=== PATIENT | female | born 1990 | race Caucasian/White ===

== ENCOUNTER 2018-06-25 15:58 | Emergency (ER) | payer OTHER ==
[~2018-06-25] VITALS: Ht 165.1 cm; Wt 79.8 kg
[2018-06-25] MEDS ORDERED: MOBIC15 MG PO (19:27)
[2018-06-25 19:33] VITALS: BP 120/81
== END 2018-06-25 19:44 | disposition home or self-care (01) ==
LOC: ER 15:58
DX: M25.572 Pain in left ankle and joints of left foot (principal)

== ENCOUNTER 2018-09-08 10:58 | Emergency (ER) | payer OTHER ==
[~2018-09-08] VITALS: Ht 165.1 cm; Wt 84.4 kg
[~2018-09-08 10:58] MED LIST: MOBIC15 MG PO
[2018-09-08 10:59] VITALS: BP 118/73
[2018-09-08] MEDS ORDERED: KEPPRA1000 MG PO (11:19)
[2018-09-08] MEDS ORDERED: TOPAMAX50 MG PO (11:19)
[2018-09-08 12:21] LABS: URINE BILIRUBIN NEGATIVE (Negative); URINE BLOOD NEGATIVE (Negative); URINE CLARITY CLEAR; URINE COLOR YELLOW; URINE GLUCOSE-RANDOM* NEGATIVE (Negative); URINE KETONES NEGATIVE (Negative); URINE NITRITE-REFLEX NEGATIVE (Negative); URINE PROTEIN (DIPSTICK) NEGATIVE (Negative); URINE SPECIFIC GRAVITY 1.025 (1.005-1.035)
[2018-09-08 12:25] LABS: URINE LEUKOCYTES-REFLEX 1+ (Negative)
[2018-09-08 12:37] LABS: CASTS None Seen /LPF (None Seen); MUCUS >6 Heavy strn/LPF (None Seen); SQUAMOUS >10 Many /LPF (0-3)
[2018-09-08 12:38] LABS: BACTERIA-REFLEX 1-9 Few /HPF (None Seen); CRYSTALS None Seen /LPF (None Seen); URINE RBC None Seen /HPF (0-2); URINE WBC-REFLEX 6-15 Few /HPF (0-5)
== END 2018-09-08 12:21 | disposition home or self-care (01) ==
LOC: ER 10:58
PROVIDERS: Emergency Medicine
DX: H53.9 Unspecified visual disturbance (principal); G40.909 Epilepsy, unspecified, not intractable, without status epilepticus

== ENCOUNTER 2019-04-03 11:05 | Emergency (ER) | payer OTHER ==
[~2019-04-03] VITALS: Ht 165.1 cm; Wt 90.7 kg
[~2019-04-03 11:05] MED LIST changes: +KEPPRA1000 MG PO; +TOPAMAX50 MG PO
[2019-04-03] MEDS ORDERED: ZYRTEC10 MG PO (11:17)
[2019-04-03] MEDS ORDERED: NEURONTIN 300300 M1 PO (11:17)
[2019-04-03 11:34] LABS: ABSOLUTE NEUTROPHILS 4.1 thou/uL (1.4-8.2); BASOPHILS 0.9 % (0.0-2.0); EOSINOPHILS 2.8 % (0.0-3.0); HEMATOCRIT 38.8 % (37.0-47.0); HEMOGLOBIN 13.2 gm/dL (12.0-15.0); LYMPHOCYTES 31.3 % (24.0-44.0); MCH 28.5 pg (26.0-34.0); MCHC 33.9 g/dL (28.0-37.0); MCV 83.9 fL (80.0-100.0); MONOCYTES 6.8 % (1.0-8.0); PLATELET COUNT 246 thou/uL (150-400); POLYS 58.2 % (36.0-66.0); RBC 4.62 mil/uL (4.20-5.00); RDW 13.5 % (10.5-14.5); WBC 7.1 thou/uL (4.0-11.0)
[2019-04-03 11:39] LABS: CALCIUM 9.2 mg/dL (8.5-10.1); POTASSIUM 3.7 mmol/L (3.5-5.1)
[2019-04-03 11:45] LABS: ALBUMIN 4.1 g/dL (3.4-5.0); TOTAL BILIRUBIN 0.4 mg/dL (<0.1-1.0); TOTAL PROTEIN 7.8 g/dL (6.4-8.2)
[2019-04-03 12:20] LABS: URINE BILIRUBIN NEGATIVE (Negative); URINE BLOOD NEGATIVE (Negative); URINE CLARITY CLEAR; URINE COLOR YELLOW; URINE GLUCOSE-RANDOM* NEGATIVE (Negative); URINE KETONES NEGATIVE (Negative); URINE LEUKOCYTES-REFLEX TRACE (Negative); URINE NITRITE-REFLEX NEGATIVE (Negative); URINE PROTEIN (DIPSTICK) NEGATIVE (Negative); URINE UROBILINOGEN 0.2 E.U./dl (0.2-1.0)
[2019-04-03 12:28] LABS: AMP/METHAMP Negative (Negative); BARBITURATES Negative (Negative); BENZODIAZEPINES Negative (Negative); COCAINE Negative (Negative); METHADONE Negative (Negative); OPIATES Negative (Negative); PCP Negative (Negative)
[2019-04-03] MEDS ORDERED: CLORAZEPATE D3.75 M1 PO (13:06)
[2019-04-03 13:21] VITALS: BP 100/63
--- NOTE | 2019-04-04 07:46 | EKG ---
[facility] [place] [address] ELECTROCARDIOGRAM REPORT Name: MISHEL MCCALL Room #: DEP RADHA Fuentes#: [id number] ������������������ Admission: 04/03/19 ������������������ Attend Phys: Discharge: 04/03/19 ������������������ Date of : 89 Report #: [id number] ����������������������������������������������������������������� [id number] THIS REPORT FOR: //name// [facility] ED Test Date: 2019-04-03 Test Time: 11:33:09 Pat Name: MISHEL MCCALL Department: Room: Gender: F [employer] Worker: ANGELO : 1990 Requested By: Amanda Ortiz Order Number: [id number] MD: Gerard Amado Measurements Intervals Trilla Rate: 66 P: 26 MS: 141 QRS: 15 QRSD: 86 T: -9 QT: 399 QTc: 418 Interpretive Statements Sinus rhythm Nonspecific ST and T wave abnormality No previous ECG available for comparison Electronically Signed On 04-04-2019 7:45:58 CDT by Gerard Amado [email or web address] ��������������������������������������������� <ELECTRONICALLY SIGNED> ���������������������������������������� By: Gerard Amado MD, [facility] ��������������������������������������������� 04/04/19 0745 [id number] 1133 Gerard Amado MD, FACC /EPI
== END 2019-04-03 13:22 | disposition home or self-care (01) ==
LOC: ER 11:05
PROVIDERS: Nurse Practitioner Family
DX: R56.9 Unspecified convulsions (principal)

== ENCOUNTER 2019-04-05 09:08 | Emergency (ER) | payer OTHER ==
[~2019-04-05] VITALS: Ht 165.1 cm; Wt 89.8 kg
[~2019-04-05 09:08] MED LIST changes: +CLORAZEPATE D3.75 M1 PO; +NEURONTIN 300300 M1 PO; +ZYRTEC10 MG PO
[2019-04-05] MEDS ORDERED: TRAZODONE HCL100 MG PO (09:13)
[2019-04-05] MEDS ORDERED: PRAZOSIN 1 MG CA1 M1 PO (09:14)
[2019-04-05] MEDS ORDERED: CELEXA20 MG PO (09:14)
[2019-04-05] MEDS ORDERED: NEURONTIN 300300 M1 PO (09:15)
[2019-04-05 10:33] LABS: ABSOLUTE NEUTROPHILS 4.3 thou/uL (1.4-8.2); BASOPHILS 1.1 % (0.0-2.0); EOSINOPHILS 2.4 % (0.0-3.0); HEMATOCRIT 38.4 % (37.0-47.0); HEMOGLOBIN 12.9 gm/dL (12.0-15.0); LYMPHOCYTES 26.9 % (24.0-44.0); MCH 28.2 pg (26.0-34.0); MCHC 33.6 g/dL (28.0-37.0); MCV 83.9 fL (80.0-100.0); MONOCYTES 6.7 % (1.0-8.0); PLATELET COUNT 223 thou/uL (150-400); POLYS 62.9 % (36.0-66.0); RBC 4.58 mil/uL (4.20-5.00); RDW 13.9 % (10.5-14.5); WBC 6.9 thou/uL (4.0-11.0)
[2019-04-05 10:38] LABS: CALCIUM 9.1 mg/dL (8.5-10.1); CREATININE 1.1 mg/dL (0.6-1.0); POTASSIUM 3.5 mmol/L (3.5-5.1)
[2019-04-05 10:40] LABS: URINE BLOOD 2+ (Negative); URINE COLOR YELLOW; URINE GLUCOSE-RANDOM* NEGATIVE (Negative); URINE KETONES NEGATIVE (Negative); URINE LEUKOCYTES-REFLEX NEGATIVE (Negative); URINE NITRITE-REFLEX NEGATIVE (Negative); URINE PROTEIN (DIPSTICK) TRACE (Negative); URINE SPECIFIC GRAVITY >= 1.030 (1.005-1.035); URINE UROBILINOGEN 0.2 E.U./dl (0.2-1.0)
[2019-04-05 10:43] LABS: URINE BILIRUBIN NEGATIVE (Negative); URINE CLARITY CLOUDY
[2019-04-05 10:44] LABS: ICTOTEST (BILI CONFIRMATORY) Negative (Negative)
[2019-04-05 10:44] LABS: ALBUMIN 3.9 g/dL (3.4-5.0); TOTAL BILIRUBIN 0.6 mg/dL (<0.1-1.0); TOTAL PROTEIN 7.5 g/dL (6.4-8.2)
[2019-04-05 10:54] LABS: CASTS None Seen /LPF (None Seen); SQUAMOUS 0-3 Few /LPF (0-3)
[2019-04-05 10:55] LABS: URINE RBC 0-2 Rare /HPF (0-2); URINE WBC-REFLEX 0-5 Rare /HPF (0-5)
[2019-04-05 10:56] LABS: AMORPHOUS URATES Moderate /LPF (None Seen); BACTERIA-REFLEX 1-9 Few /HPF (None Seen); CALCIUM OXALATE 0-3 Few /LPF (None Seen)
[2019-04-05 11:11] VITALS: BP 103/65
[2019-04-05] MEDS ORDERED: KEFLEX500 M1 PO (11:22)
== END 2019-04-05 11:30 | disposition home or self-care (01) ==
LOC: ER 09:08
PROVIDERS: Physician Assistant
DX: N39.0 Urinary tract infection, site not specified (principal); R53.81 Other malaise; R53.83 Other fatigue

== ENCOUNTER 2019-04-13 09:54 | Emergency (ER) | payer OTHER ==
[~2019-04-13] VITALS: Ht 165.1 cm; Wt 84.8 kg
[~2019-04-13 09:54] MED LIST changes: +CELEXA20 MG PO; +KEFLEX500 M1 PO; +PRAZOSIN 1 MG CA1 M1 PO; +TRAZODONE HCL100 MG PO
[2019-04-13 10:27] LABS: URINE BLOOD 3+ (Negative); URINE CLARITY HAZY; URINE COLOR YELLOW; URINE GLUCOSE-RANDOM* NEGATIVE (Negative); URINE KETONES NEGATIVE (Negative); URINE LEUKOCYTES-REFLEX 1+ (Negative); URINE NITRITE-REFLEX NEGATIVE (Negative); URINE PROTEIN (DIPSTICK) NEGATIVE (Negative); URINE SPECIFIC GRAVITY >= 1.030 (1.005-1.035)
[2019-04-13 10:30] LABS: ABSOLUTE NEUTROPHILS 4.7 thou/uL (1.4-8.2); BASOPHILS 0.9 % (0.0-2.0); EOSINOPHILS 1.4 % (0.0-3.0); HEMATOCRIT 37.9 % (37.0-47.0); LYMPHOCYTES 28.7 % (24.0-44.0); MCH 28.8 pg (26.0-34.0); MCHC 34.3 g/dL (28.0-37.0); MCV 83.8 fL (80.0-100.0); MONOCYTES 5.7 % (1.0-8.0); PLATELET COUNT 253 thou/uL (150-400); POLYS 63.3 % (36.0-66.0); RBC 4.53 mil/uL (4.20-5.00); RDW 13.8 % (10.5-14.5); WBC 7.4 thou/uL (4.0-11.0)
[2019-04-13 10:31] LABS: ICTOTEST (BILI CONFIRMATORY) Negative (Negative); URINE BILIRUBIN NEGATIVE (Negative)
[2019-04-13 10:44] LABS: CALCIUM 9.2 mg/dL (8.5-10.1); CREATININE 0.9 mg/dL (0.6-1.0); POTASSIUM 3.6 mmol/L (3.5-5.1)
[2019-04-13 10:50] LABS: ALBUMIN 3.9 g/dL (3.4-5.0); TOTAL BILIRUBIN 0.5 mg/dL (<0.1-1.0); TOTAL PROTEIN 7.3 g/dL (6.4-8.2)
[2019-04-13 10:56] LABS: CASTS None Seen /LPF (None Seen); MUCUS >6 Heavy strn/LPF (None Seen); SQUAMOUS >10 Many /LPF (0-3)
[2019-04-13 10:57] LABS: BACTERIA-REFLEX 1-9 Few /HPF (None Seen); CRYSTALS None Seen /LPF (None Seen); URINE RBC >20 Many /HPF (0-2); URINE WBC-REFLEX 6-15 Few /HPF (0-5)
[2019-04-13] MEDS ORDERED: CELEBREX 200 M200 M1 PO (11:10)
[2019-04-13 11:14] VITALS: BP 98/70
== END 2019-04-13 11:11 | disposition home or self-care (01) ==
LOC: ER 09:54
PROVIDERS: Physician Assistant
DX: R10.84 Generalized abdominal pain (principal); G40.909 Epilepsy, unspecified, not intractable, without status epilepticus; Z79.899 Other long term (current) drug therapy

== ENCOUNTER 2019-04-20 06:45 | Emergency (ER) | payer OTHER ==
[~2019-04-20] VITALS: Ht 165.1 cm; Wt 84.8 kg
[~2019-04-20 06:45] MED LIST changes: +CELEBREX 200 M200 M1 PO
[2019-04-20 06:55] VITALS: BP 115/83
== END 2019-04-20 09:00 | disposition home or self-care (01) ==
LOC: ER 06:45
DX: S93.402A Sprain of unspecified ligament of left ankle, initial encounter (principal); S80.12XA Contusion of left lower leg, initial encounter; W18.39XA Other fall on same level, initial encounter; Y92.89 Other specified places as the place of occurrence of the external cause; Y93.89 Activity, other specified; Y99.8 Other external cause status

== ENCOUNTER 2019-05-03 18:33 | Emergency (ER) | payer OTHER ==
[~2019-05-03] VITALS: Ht 165.1 cm; Wt 83.9 kg
[2019-05-03] MEDS ORDERED: CELEXA10 MG PO (18:43)
[2019-05-03 19:24] LABS: ABSOLUTE NEUTROPHILS 6.3 thou/uL (1.4-8.2); BASOPHILS 1.2 % (0.0-2.0); EOSINOPHILS 2.1 % (0.0-3.0); HEMATOCRIT 40.1 % (37.0-47.0); HEMOGLOBIN 13.5 gm/dL (12.0-15.0); LYMPHOCYTES 29.2 % (24.0-44.0); MCH 28.3 pg (26.0-34.0); MCHC 33.7 g/dL (28.0-37.0); MCV 84.1 fL (80.0-100.0); MONOCYTES 5.8 % (1.0-8.0); POLYS 61.7 % (36.0-66.0); RBC 4.78 mil/uL (4.20-5.00); RDW 13.8 % (10.5-14.5)
[2019-05-03 19:29] LABS: CALCIUM 9.5 mg/dL (8.5-10.1); CREATININE 0.8 mg/dL (0.6-1.0); POTASSIUM 3.7 mmol/L (3.5-5.1)
[2019-05-03 19:36] LABS: ALBUMIN 3.9 g/dL (3.4-5.0); TOTAL BILIRUBIN 0.5 mg/dL (<0.1-1.0); TOTAL PROTEIN 7.6 g/dL (6.4-8.2)
[2019-05-03 19:58] LABS: PLATELET ESTIMATE NORMAL
[2019-05-03] MEDS ORDERED: IBUPROFEN 600600 M1 PO (20:47)
[2019-05-03 21:23] VITALS: BP 136/88
== END 2019-05-03 21:24 | disposition home or self-care (01) ==
LOC: ER 18:33
PROVIDERS: Physician Assistant
DX: S00.93XA Contusion of unspecified part of head, initial encounter (principal); S40.011A Contusion of right shoulder, initial encounter; S60.511A Abrasion of right hand, initial encounter; G40.909 Epilepsy, unspecified, not intractable, without status epilepticus; W18.39XA Other fall on same level, initial encounter; Y93.89 Activity, other specified; Y92.89 Other specified places as the place of occurrence of the external cause; Y99.8 Other external cause status

== ENCOUNTER 2019-05-08 09:10 | Emergency (ER) | payer OTHER ==
[~2019-05-08] VITALS: Ht 165.1 cm; Wt 84.8 kg
[~2019-05-08 09:10] MED LIST changes: +CELEXA10 MG PO; +IBUPROFEN 600600 M1 PO
[2019-05-08 11:40] VITALS: BP 110/73
== END 2019-05-08 11:40 | disposition home or self-care (01) ==
LOC: ER 09:10
DX: G43.909 Migraine, unspecified, not intractable, without status migrainosus (principal)

== ENCOUNTER 2020-05-26 17:46 | Emergency (ER) | payer OTHER ==
[~2020-05-26] VITALS: Ht 165.1 cm; Wt 83.9 kg
[2020-05-26 19:20] VITALS: BP 120/61
== END 2020-05-26 19:44 | disposition home or self-care (01) ==
LOC: ER 17:46
DX: G89.18 Other acute postprocedural pain (principal); M25.561 Pain in right knee; M96.830 Postprocedural hemorrhage of a musculoskeletal structure following a musculoskeletal system procedure; Z79.899 Other long term (current) drug therapy

== ENCOUNTER 2020-08-02 18:27 | Emergency (ER) | payer OTHER ==
[~2020-08-02] VITALS: Ht 165.1 cm; Wt 79.4 kg
[2020-08-02 20:41] VITALS: BP 131/80
== END 2020-08-02 20:41 | disposition home or self-care (01) ==
LOC: ER 18:27
DX: G43.909 Migraine, unspecified, not intractable, without status migrainosus (principal); G40.909 Epilepsy, unspecified, not intractable, without status epilepticus; Z98.890 Other specified postprocedural states; Z79.899 Other long term (current) drug therapy

== ENCOUNTER 2020-10-15 11:45 | Emergency (ER) | payer OTHER ==
[~2020-10-15] VITALS: Ht 165.1 cm; Wt 54.4 kg
[2020-10-15] MEDS ORDERED: AFRIN15 M1 NASAL (13:45)
[2020-10-15] MEDS ORDERED: MOBIC7.5 MG PO (13:45)
[2020-10-15 14:13] VITALS: BP 128/84
== END 2020-10-15 14:13 | disposition home or self-care (01) ==
LOC: ER 11:45
DX: J02.8 Acute pharyngitis due to other specified organisms (principal); Z20.828 Contact with and (suspected) exposure to other viral communicable diseases; B97.89 Other viral agents as the cause of diseases classified elsewhere; G43.909 Migraine, unspecified, not intractable, without status migrainosus; G40.909 Epilepsy, unspecified, not intractable, without status epilepticus; R09.81 Nasal congestion; Z79.899 Other long term (current) drug therapy; Z98.890 Other specified postprocedural states

== ENCOUNTER 2020-12-26 08:48 | Emergency (ER) | payer OTHER ==
[~2020-12-26] VITALS: Ht 165.1 cm; Wt 86.2 kg
[~2020-12-26 08:48] MED LIST changes: +AFRIN15 M1 NASAL; +MOBIC7.5 MG PO
[2020-12-26 09:46] LABS: ABSOLUTE NEUTROPHILS 6.8 thou/uL (1.4-8.2); BASOPHILS 1.1 % (0.0-2.0); EOSINOPHILS 2.5 % (0.0-3.0); HEMATOCRIT 39.7 % (37.0-47.0); LYMPHOCYTES 16.3 % (24.0-44.0); MCH 26.4 pg (26.0-34.0); MCHC 32.9 g/dL (28.0-37.0); MCV 80.4 fL (80.0-100.0); MONOCYTES 5.7 % (1.0-8.0); PLATELET COUNT 305 thou/uL (150-400); POLYS 74.4 % (36.0-66.0); RBC 4.93 mil/uL (4.20-5.00); WBC 9.1 thou/uL (4.0-11.0)
[2020-12-26 09:49] LABS: ANION GAP 9 mmol/L (7-16); BUN 11 mg/dL (7-18); CALCIUM 8.8 mg/dL (8.5-10.1); CHLORIDE 107 mmol/L (98-107); CO2 25 mmol/L (21-32); GLUCOSE 95 mg/dL (74-106); SODIUM 141 mmol/L (136-145)
[2020-12-26 09:55] LABS: ALBUMIN 3.7 g/dL (3.4-5.0); DIRECT BILIRUBIN < 0.1 mg/dL (<0.1-0.2); SGOT 18 U/L (15-37); SGPT 29 U/L (14-59); TOTAL BILIRUBIN 0.5 mg/dL (0.2-1.0); TOTAL PROTEIN 7.7 g/dL (6.4-8.2)
[2020-12-26 10:16] LABS: URINE BILIRUBIN NEGATIVE (Negative); URINE BLOOD NEGATIVE (Negative); URINE CLARITY CLEAR; URINE COLOR YELLOW; URINE GLUCOSE-RANDOM* NEGATIVE (Negative); URINE KETONES NEGATIVE (Negative); URINE LEUKOCYTES-REFLEX TRACE (Negative); URINE NITRITE-REFLEX NEGATIVE (Negative); URINE PROTEIN (DIPSTICK) NEGATIVE (Negative); URINE SPECIFIC GRAVITY >= 1.030 (1.005-1.035); URINE UROBILINOGEN 0.2 E.U./dl (0.2-1.0)
[2020-12-26] MEDS ORDERED: NORCO5 PO (12:52)
[2020-12-26 13:17] VITALS: BP 117/80
== END 2020-12-26 13:25 | disposition home or self-care (01) ==
LOC: ER 08:48
PROVIDERS: Emergency Medicine
DX: R10.11 Right upper quadrant pain (principal); G43.909 Migraine, unspecified, not intractable, without status migrainosus; Z79.899 Other long term (current) drug therapy

== ENCOUNTER 2021-03-20 20:27 | Emergency (ER) | payer OTHER ==
[~2021-03-20] VITALS: Ht 165.1 cm; Wt 85.7 kg
[~2021-03-20 20:27] MED LIST changes: +NORCO5 PO
[2021-03-20] MEDS ORDERED: TOPAMAX100 MG PO (20:32)
[2021-03-20 20:58] LABS: URINE BILIRUBIN NEGATIVE (Negative); URINE BLOOD TRACE (Negative); URINE CLARITY CLEAR; URINE COLOR YELLOW; URINE GLUCOSE-RANDOM* NEGATIVE (Negative); URINE KETONES NEGATIVE (Negative); URINE LEUKOCYTES-REFLEX NEGATIVE (Negative); URINE NITRITE-REFLEX NEGATIVE (Negative); URINE PROTEIN (DIPSTICK) NEGATIVE (Negative); URINE SPECIFIC GRAVITY >= 1.030 (1.005-1.035); URINE UROBILINOGEN 0.2 E.U./dl (0.2-1.0)
[2021-03-20] MEDS ORDERED: MOBIC7.5 MG PO (21:09)
[2021-03-20] MEDS ORDERED: FLEXERIL PO (21:09)
[2021-03-20 21:48] VITALS: BP 139/83
== END 2021-03-20 21:48 | disposition home or self-care (01) ==
LOC: ER 20:27
PROVIDERS: Nurse Practitioner
DX: S39.012A Strain of muscle, fascia and tendon of lower back, initial encounter (principal); G43.909 Migraine, unspecified, not intractable, without status migrainosus; V49.59XA Passenger injured in collision with other motor vehicles in traffic accident, initial encounter; Y93.89 Activity, other specified; Y92.488 Other paved roadways as the place of occurrence of the external cause; Y99.8 Other external cause status

== ENCOUNTER 2021-03-22 21:41 | Emergency (ER) | payer OTHER ==
[~2021-03-22] VITALS: Ht 165.1 cm; Wt 85.7 kg
[~2021-03-22 21:41] MED LIST changes: +FLEXERIL PO; +TOPAMAX100 MG PO
[2021-03-23] MEDS ORDERED: NORCO 10-325 T1 EACH PO (01:00)
[2021-03-23 01:12] VITALS: BP 131/94
== END 2021-03-23 01:15 | disposition home or self-care (01) ==
LOC: ER 21:41
DX: S43.401A Unspecified sprain of right shoulder joint, initial encounter (principal); G43.909 Migraine, unspecified, not intractable, without status migrainosus; Z98.890 Other specified postprocedural states; V49.9XXA Car occupant (driver) (passenger) injured in unspecified traffic accident, initial encounter; Y93.89 Activity, other specified; Y92.488 Other paved roadways as the place of occurrence of the external cause; Y99.8 Other external cause status

== ENCOUNTER 2021-04-08 17:45 | Emergency (ER) | payer OTHER ==
[~2021-04-08] VITALS: Ht 167.6 cm; Wt 68.0 kg
[~2021-04-08 17:45] MED LIST changes: +NORCO 10-325 T1 EACH PO
[2021-04-08] MEDS ORDERED: NORCO5 PO (20:46)
[2021-04-08 21:10] VITALS: BP 128/76
== END 2021-04-08 21:18 | disposition home or self-care (01) ==
LOC: ER 17:45
DX: S86.811A Strain of other muscle(s) and tendon(s) at lower leg level, right leg, initial encounter (principal); G40.909 Epilepsy, unspecified, not intractable, without status epilepticus; G43.909 Migraine, unspecified, not intractable, without status migrainosus; Z79.1 Long term (current) use of non-steroidal anti-inflammatories (NSAID); Z79.891 Long term (current) use of opiate analgesic; Z79.899 Other long term (current) drug therapy; X50.1XXA Overexertion from prolonged static or awkward postures, initial encounter; Y93.64 Activity, baseball; Y92.89 Other specified places as the place of occurrence of the external cause; Y99.8 Other external cause status

== ENCOUNTER 2021-10-04 15:37 | Emergency (ER) | payer OTHER ==
[~2021-10-04] VITALS: Ht 165.1 cm; Wt 74.8 kg
[2021-10-04 16:23] LABS: URINE BILIRUBIN NEGATIVE (Negative); URINE BLOOD 3+ (Negative); URINE CLARITY CLOUDY; URINE COLOR YELLOW; URINE GLUCOSE-RANDOM* NEGATIVE (Negative); URINE KETONES NEGATIVE (Negative); URINE LEUKOCYTES-REFLEX 2+ (Negative); URINE NITRITE-REFLEX NEGATIVE (Negative); URINE PROTEIN (DIPSTICK) NEGATIVE (Negative); URINE SPECIFIC GRAVITY 1.025 (1.005-1.035); URINE UROBILINOGEN 0.2 E.U./dl (0.2-1.0)
[2021-10-04 16:38] LABS: SQUAMOUS 4-10 Moderate /LPF (0-3)
[2021-10-04 16:39] LABS: CASTS None Seen /LPF (None Seen); CRYSTALS None Seen /LPF (None Seen); URINE RBC 3-10 Few /HPF (NONE SEEN); URINE WBC-REFLEX 6-15 Few /HPF (0-5)
[2021-10-04 16:50] LABS: ABSOLUTE NEUTROPHILS 4.6 thou/uL (1.4-8.2); BASOPHILS 1.1 % (0.0-2.0); EOSINOPHILS 2.2 % (0.0-3.0); HEMATOCRIT 35.5 % (37.0-47.0); HEMOGLOBIN 11.7 gm/dL (12.0-15.0); LYMPHOCYTES 36.1 % (24.0-44.0); MCH 28.1 pg (26.0-34.0); MCHC 33.1 g/dL (28.0-37.0); MCV 84.8 fL (80.0-100.0); PLATELET COUNT 321 thou/uL (150-400); POLYS 52.6 % (36.0-66.0); RBC 4.18 mil/uL (4.20-5.00); RDW 14.2 % (10.5-14.5); WBC 8.7 thou/uL (4.0-11.0)
[2021-10-04 17:04] LABS: CALCIUM 8.7 mg/dL (8.5-10.1); CREATININE 0.9 mg/dL (0.6-1.0); POTASSIUM 3.4 mmol/L (3.5-5.1)
[2021-10-04 17:10] LABS: ALBUMIN 3.7 g/dL (3.4-5.0); TOTAL BILIRUBIN 0.6 mg/dL (0.2-1.0); TOTAL PROTEIN 6.9 g/dL (6.4-8.2)
[2021-10-04] MEDS ORDERED: CEPHALEXIN500 MG PO (17:52)
[2021-10-04 18:17] VITALS: BP 113/60
== END 2021-10-04 18:17 | disposition home or self-care (01) ==
LOC: ER 15:37
PROVIDERS: Emergency Medicine
DX: K62.5 Hemorrhage of anus and rectum (principal); N39.0 Urinary tract infection, site not specified; G43.909 Migraine, unspecified, not intractable, without status migrainosus; Z79.899 Other long term (current) drug therapy